=== PATIENT | male | born 1990 | race Caucasian/White ===

== ENCOUNTER 2020-09-03 12:29 | Emergency (ER) | payer OTHER ==
[~2020-09-03] VITALS: Ht 175.3 cm; Wt 81.4 kg
[2020-09-03] MEDS ORDERED: IV NORMAL SALINE 1,000ML 1,000 ML IV ONE (13:00)
[2020-09-03] MEDS ORDERED: ONDANSETRON PF 4 MG/2 ML VIAL. IVP ONE (13:00)
[2020-09-03 13:03] LABS: BASO % 0 % (0-3); EOS # 0.1 x10^3/uL (0.0-0.7); EOS % 1 % (0-3); HEMATOCRIT 45.6 % (39.0-53.0); HEMOGLOBIN 15.7 g/dL (13.0-17.5); LYMPH # 0.8 x10^3/uL (1.0-4.8); LYMPH % 9 % (24-48); MEAN CORPUSCULAR HEMOGLOBIN 31 pg (25-35); MEAN CORPUSCULAR HGB CONC 34 g/dL (31-37); MEAN CORPUSCULAR VOLUME 90 fL (79-100); MONO # 0.4 x10^3/uL (0.0-1.1); MONO % 5 % (0-9); NEUT # 7.5 x10^3uL (1.8-7.7); NEUT % 86 % (31-73); PLATELET COUNT 255 x10^3/uL (140-400); RED BLOOD COUNT 5.05 x10^6/uL (4.30-5.70); RED CELL DISTRIBUTION WIDTH 12.6 % (11.5-14.5); WHITE BLOOD COUNT 8.8 x10^3/uL (4.0-11.0)
--- NOTE | 2020-09-03 13:05 | PHYS DOC ---
Past History Additional Past Medical Histor: ADHD, Mitral valve prolapse Past Surgical History: No Surgical History Smoking: Non-smoker Alcohol Use: None Drug Use: None Social History Narrative: lives at home with his parents General Adult EDM: Chief Complaint: syncopal episodes HPI: HPI: Patient is a 29-year-old male, brought to the emergency department by his father, who presents for evaluation after having 2 syncopal episodes this morning. Patient reports that he woke up this morning feeling dizzy, he proceeded to get out of bed and go to the bathroom to take shower. Patient reports that he vomited once and then while he was in the shower at some point he fell. Patient does not know how long the loss of consciousness was. He reports that he does not think he was out for very long. Patient states he was able to get out of the shower on his own, and then while he was making lunch in the kitchen he vomited and passed out again. Patient states when he passed out in the kitchen he hit his head on the refrigerator and now has a laceration above his right eye. He denies any head, neck, back, or extremity pain. Patient denies any headache, vision changes, numbness, tingling, or weakness. He also denies any chest pain, palpitations, shortness of breath, fever, cough, body aches, abdominal pain, diarrhea, or sore throat. He denies any known COVID-19 exposure. Patient currently denies any pain, he states that his right ear has felt congested recently but denies any drainage or bleeding from the right ear. He is unsure when his last tetanus shot was, he believes it was greater than 5 years ago. Review of Systems: Review of Systems: Complete ROS is negative unless otherwise noted in HPI. Current Medications: Current Meds: Current Medications Medications (Trade) Dose Ordered Sig/[facility] Start Time Stop Time Status Last Admin Dose Admin Ondansetron HCl (Zofran) 4 mg 1X ONCE 09/03/20 13:00 09/03/20 13:01 UNV Sodium Chloride 1,000 ml @ 1,000 mls/hr 1X ONCE 09/03/20 13:00 09/03/20 13:59 UNV Physical Exam: PE: See Above Constitutional: Well developed, well nourished, no acute distress, non-toxic appearance. [] HENT: Normocephalic, bilateral external ears normal, bilateral TMs normal, nose normal. [] Eyes: PERRLA, EOMI, conjunctiva normal, no discharge, no nystagmus. [] Neck: Normal range of motion, nontender, supple, no deformity, no step-off, no stridor. [] Cardiovascular:Heart rate regular rhythm Lungs & Thorax: Respirations even and unlabored, no retractions, no respiratory distress Abdomen: soft, no tenderness, no rebound tenderness, guarding Skin: Warm, dry, no erythema, no rash; 2 cm horizontal laceration to the right eyebrow, no active bleeding, no visible foreign body [] Extremities: No cyanosis, ROM intact, no edema. [] Neurologic: Alert and oriented X 3, no focal deficits noted. [] Psychologic: Affect normal, judgement normal, mood normal. [] Current Patient Data: Labs: Laboratory Tests Test 09/03/20 12:40 Glucose (Fingerstick) 107 mg/dL (70-99) H EKG: EK-SR rate 79, normal ECG, No STEMI read by DR. Nino[] Radiology/Procedures: Radiology/Procedures: PROCEDURE: CT HEAD WO CONTRAST CT HEAD INDICATION: Syncope COMPARISON: None Available. Exposure: One or more of the following individualized dose reduction techniques were utilized for this examination: 1. Automated exposure control 2. Adjustment of the mA and/or kV according to patient size 3. Use of iterative reconstruction technique TECHNIQUE: 5 mm contiguous axial images were obtained from the skull base to the vertex in both bone and soft tissue algorithm. FINDINGS: No abnormal attenuation within the brain parenchyma. No evidence of acute intracranial hemorrhage. No extra-axial fluid collections. No mass effect or midline shift. Ventricular size is appropriate. Basal cisterns are patent. No fractures identified.Price-white differentiation is preserved.Globes and orbits are within normal limits. Paranasal sinuses and mastoid air cells are clear. IMPRESSION: No acute intracranial findings. [] Laceration Repair by me: Anesthesia: 1% lidocaine locally Location: Right eyebrow Tendon/Joint/Nerves: No injury Foreign body: None detected after copious irrigation and exploration with NS and chlorhexidine Technique: 5 simple Interrupted Sutures with 6-0 Ethilon Complexity: No subcutaneous sutures/mucosal repair/edge excision Post Closure Length: 2 cm Patient's bleeding was easily controlled in the department and there is no indication of anemia. No evidence of compartment syndrome, neurologic injury, vascular injury, open joint, tendon laceration, or foreign body. Patient is appropriate for outpatient follow up. Scar minimazation instructions given. [] Heart Score: Risk Factors: Risk Factors: DM, Current or recent (<one month) smoker, HTN, HLP, family history of CAD, obesity. Risk Scores: Score 0 - 3: 2.5% MACE over next 6 weeks - Discharge Home Score 4 - 6: 20.3% MACE over next 6 weeks - Admit for Clinical Observation Score 7 - 10: 72.7% MACE over next 6 weeks - Early Invasive Strategies Course & Med Decision Making: Course & Med Decision Making Pertinent Labs and Imaging studies reviewed. (See chart for details) 29-year-old male who presented to the emergency department with reports of sync opal episodes x2 today and a laceration to his right eyebrow HPI and exam is most consistent with BPPV. Patient's EKG revealed no acute findings. CBC, and CMP were unremarkable. Patient's head CT was also negative for any acute findings. Wound repair as do cumented above. Prescription was written for meclizine. Advised the patient to inform others if he begins to feel lightheaded. I encouraged him to follow-up with his primary care doctor in the next 1 to 2 days, if the symptoms persist he may need to follow-up with an nuclear medical technologist. Encouraged him to return to the ER if his symptoms worsened or fever develop. Patient verbalized an understanding of home care, medications, follow-up, and return to ED instructions and was in agreement with the plan of care. [] Dragon Disclaimer: Dragon Disclaimer: This electronic medical record was generated, in whole or in part, using a voice recognition dictation system. Departure Departure: Impression: Primary Impression: BPPV (benign paroxysmal positional vertigo) Qualified Codes: H81.10 - Benign paroxysmal vertigo, unspecified ear Additional Impressions: Syncopal episodes Qualified Codes: R55 - Syncope and collapse Laceration of right eyebrow without complication Qualified Codes: S01.111A - Laceration without foreign body of right eyelid and periocular area, initial encounter Need for Tdap vaccination Nausea & vomiting Qualified Codes: R11.2 - Nausea with vomiting, unspecified Disposition: 01 DC HOME SELF CARE/HOMELESS Condition: STABLE Referrals: BRIAN SANTO (PCP) Patient Instructions: Benign Positional Vertigo, Facial Laceration, [id number], Syncope, [id number] Additional Instructions: Fill the prescription and use as directed. Change positions slowly, in stages. Tylenol or ibuprofen as needed for pain. Keep the sutured area clean and dry. Do not submerge your head underwater until the sutures have been removed. Clean the affected area with soap and water twice daily and as needed. Follow-up with your primary care doctor, or return to the emergency room in 5-7 days to have the sutures removed, sooner if you develop signs of infection including: redness, warmth, drainage, or a fever. Follow-up with your primary care doctor for reevaluation of vertigo and syncope in the next 1 to 2 days, return to the ER if your symptoms worsen. Scripts Meclizine Hcl (MECLIZINE HCL) 25 Mg Tablet 1 TAB PO PRN TID PRN for DIZZINESS for 10 Days, #30 TAB 0 Refills Prov: MADAY EMDRANO APRN 09/03/20 MADAY MEDRANO APRN Sep 03, 2020 13:05
--- NOTE | 2020-09-03 13:05 | EKG ---
[address] [address] Test Date: 2020-09-03 Test Time: 12:39:50 Pat Name: DEBORAH JIMÉNEZ Department: Room: Gender: M People Greeter: GOKUL : 1990 Requested By: MADAY MEDRANO Order Number: [id number] Reading MD: Measurements Intervals [place] Rate: 79 P: 30 [place]: 178 QRS: 43 QRSD: 84 T: 13 QT: 342 QTc: 393 Interpretive Statements SINUS RHYTHM OTHERWISE NORMAL ECG RI6.02 No previous ECG available for comparison
[2020-09-03 13:15] LABS: CALCIUM 8.9 mg/dL (8.5-10.1); CREATININE 1.1 mg/dL (0.7-1.3); GFR 78.1; POTASSIUM 4.3 mmol/L (3.5-5.1)
[2020-09-03] MEDS ORDERED: LIDOCAINE 1% Multi-Dose 20 ML VIAL. IJ ONE (13:15)
--- NOTE | 2020-09-03 13:26 | RAD ---
CT HEAD INDICATION: Syncope COMPARISON: None Available. Exposure: One or more of the following individualized dose reduction techniques were utilized for thi s examination: 1. Automated exposure control 2. Adjustment of the mA and/or kV according to patient size 3. Use of iterative reconstruction technique TECHNIQUE: 5 mm contiguous axial images were obtained from the skull base to the vertex in both bone and soft tissue algorithm. FINDINGS: No abnormal attenuation within the brain parenchyma. No evidence of acute intracranial hemorrhage. No extra-axial fluid collections. No mass effect or midline shift. Ventricular size is appropriate. Basal cisterns are patent. No fractures identified.Price-white differentiation is preserved.Globes and orbits are within normal l imits. Paranasal sinuses and mastoid air cells are clear. IMPRESSION: No acute intracranial findings. Electronically signed by: Robinson Levine MD (09/03/2020 1:23 PM) [id number]
[2020-09-03 13:32] LABS: ALBUMIN/GLOBULIN RATIO 1.1 (1.0-1.7); MAGNESIUM 2.2 mg/dL (1.8-2.4); TOTAL BILIRUBIN 0.3 mg/dL (0.2-1.0); TOTAL PROTEIN 7.7 g/dL (6.4-8.2)
[2020-09-03] MEDS ORDERED: DIPH,PERTUSS(ACELL),TET VAC/PF 0.5 ML SYRINGE. VAX IM ONE (14:45)
[2020-09-03 15:04] LABS: AMPHETAMINE/METHAMPHETAMINE NEG (NEG); BARBITURATES NEG (NEG); BENZODIAZEPINES NEG (NEG); CANNABINOIDS NEG (NEG); COCAINE NEG (NEG); METHADONE NEG (NEG); OPIATES NEG (NEG); PHENCYCLIDINE NEG (NEG)
[2020-09-03 15:06] VITALS: BP 140/86
[2020-09-03 15:12] LABS: CLARITY,URINE CLEAR; COLOR,URINE YELLOW
[2020-09-03 15:13] LABS: BACTERIA,URINE 0 /HPF (0-FEW); BILIRUBIN,URINE NEG (NEG); GLUCOSE,URINE NEG (NEG); NITRITE,URINE NEG (NEG); RBC,URINE OCC /HPF (0-2); SQUAMOUS EPITHELIAL CELL,UR FEW /LPF; UROBILINOGEN,URINE 0.2 mg/dL (0.2 mg/dL); WBC,URINE OCC /HPF (0-4)
[2020-09-03] MEDS ORDERED: MECL-75 PO (15:34)
== END 2020-09-03 15:37 | disposition home or self-care (01) ==
LOC: ER 12:29
DX: S01.111A Laceration without foreign body of right eyelid and periocular area, initial encounter (principal); R55 Syncope and collapse; H81.10 Benign paroxysmal vertigo, unspecified ear; R11.2 Nausea with vomiting, unspecified; W18.39XA Other fall on same level, initial encounter; Y93.89 Activity, other specified; Y92.89 Other specified places as the place of occurrence of the external cause; Y99.8 Other external cause status
CPT/HCPCS: 12011; 36415; 70450; 80053; 80307; 81001; 82553; 82947; 83735; 84484; 85025; 85379; 90471; 90715; 93005; 96361; 96374; 99285; G0480; J2405; J7030